=== PATIENT | female | born 1955 | race Asian ===

== ENCOUNTER 2023-10-11 06:22 | Inpatient (IN) | payer OTHER, MEDICAID ==
[2023-10-11] VITALS (46 sets, daily range): BP systolic 110–191; BP diastolic 42–87; PULSE 58–86; RESP 9–22; TEMP 97.3–97.8; O2SAT 94–100
[~2023-10-11] VITALS: Ht 160 cm; Wt 43.0 kg
[~2023-10-11 06:22] MED LIST: ASPI81CH59 PO; ATOR40TA52 PO; CLOP75TA28 PO
[2023-10-11] MEDS: PROTAMINE SULFATE 10 MG/ML 5ML VIAL IV ONE (06:35)
[2023-10-11] MEDS: LIDOCAINE HCL (LOCAL ANESTH.) 0.5 % 50ML MDV IJ ONE (06:35)
[2023-10-11] MEDS: BUPIVACAINE 0.5% P/F INJ 10 ML VIAL ONE (06:35)
[2023-10-11] MEDS ORDERED: PHENYLEPHRINE HCL 10 MG/ML VL IV ONE (06:40)
[2023-10-11] MEDS: LIDOCAINE 2% JELLY 11ml (GLYDO) ONE (06:56)
[2023-10-11] MEDS ORDERED: fentaNYL CITRATE 100 MCG/2 ML VL ONE (07:18)
[2023-10-11] MEDS ORDERED: MEPERIDINE HCL (50 MG/ML) 1 ML VIAL ONE (07:19)
[2023-10-11] MEDS ORDERED: MIDAZOLAM HCL 2MG/2ML 2ml VIAL (1mg/ml) ONE (07:19)
[2023-10-11] MEDS: VANCOMYCIN HCL 1000 MG VL ONE (07:24)
[2023-10-11] MEDS ORDERED: ePHEDrine SULFATE 50 MG/ML AMP IV PRN (08:00)
[2023-10-11] MEDS ORDERED: MORPHINE SULFATE 4 MG/ML SYR/VIAL IV PRN (08:00)
[2023-10-11] MEDS ORDERED: HYDROmorphone HCL 2 MG/ML VL/or syr IV PRN (08:00)
[2023-10-11] MEDS ORDERED: MIDAZOLAM HCL 2MG/2ML 2ml VIAL (1mg/ml) IV PRN (08:00)
[2023-10-11] MEDS ORDERED: ONDANSETRON HCL 4 MG/2 ML VIAL IV PRN (08:00)
[2023-10-11] MEDS ORDERED: ETOMIDATE (2MG/ML) 20ML VIAL IV ONE (08:07)
[2023-10-11] MEDS ORDERED: DexAMETHasone SOD PHOS 10MG/1ML VIAL INJ ONE (08:07)
[2023-10-11] MEDS ORDERED: ONDANSETRON HCL 4 MG/2 ML VIAL ONE (08:08)
[2023-10-11] MEDS: HEPARIN SODIUM (PORCINE) 5000 UNITS/ML 1ML VIAL ONE (08:19)
[2023-10-11] MEDS: LIDOCAINE 1% (LOCAL ANESTH.) PF 5ml SDV ONE (08:20)
[2023-10-11] MEDS: HEPARIN 1,000 UNITS/ml 1ML VIAL ONE (08:30)
[2023-10-11] MEDS ORDERED: MORPHINE SULFATE INJ 2 MG/ml SYRG IV PRN (10:15)
[2023-10-11] MEDS ORDERED: NITROGLYCERIN 0.4 MG SL TAB SL PRN (10:15)
[2023-10-11] MEDS: LABETALOL HCL 5 MG/ML 4ML SYRINGE IV PRN (10:41)
[2023-10-11] MEDS: LISINOPRIL 10 MG TAB PO SCH (11:43)
[2023-10-11] MEDS ORDERED: ACETAMINOPHEN 500 MG TAB PO PRN (11:45)
[2023-10-11] MEDS ORDERED: LISINOPRIL 20 MG TAB PO SCH (11:45)
[2023-10-11] MEDS ORDERED: HYDROcodone-ACET 5/325MG TAB PO PRN (11:45)
[2023-10-11] MEDS: METOPROLOL TARTRATE 1MG/1ML-5ML VIAL IV PRN (12:02)
[2023-10-11] MEDS: hydrALAZINE HCL 20 MG/ML VL IV PRN (12:58)
[2023-10-11] MEDS: ONDANSETRON HCL 4 MG/2 ML VIAL IV PRN (13:57)
[2023-10-11] MEDS: ONDANSETRON HCL 4 MG/2 ML VIAL IV ONE (16:45)
[2023-10-11] MEDS: SODIUM CHLORIDE 0.9% 1,000 ML IV SCH (20:09)
[2023-10-11] MEDS: METOCLOPRAMIDE HCL 5MG/ml INJ 2ml VIAL IV PRN (21:38)
[2023-10-12] VITALS (85 sets, daily range): BP systolic 130–212; BP diastolic 49–91; PULSE 59–124; RESP 13–24; TEMP 97–98.5; O2SAT 91–99
[2023-10-12] MEDS: hydrALAZINE HCL 20 MG/ML VL ONE ×2 (00:08→04:33)
[2023-10-12] MEDS: hydrALAZINE HCL 20 MG/ML VL IV PRN ×3 (00:08→08:05)
[2023-10-12] MEDS: MORPHINE SULFATE INJ 2 MG/ml SYRG IV PRN (03:43)
[2023-10-12 04:06] LABS: Basophils # (auto) 0 10 ^3/uL (0-0.2); Basophils % (auto) 0.4 % (0.0-2.0); Eosinophils # (auto) 0 10 ^3/uL (0-0.8); Hemoglobin 11.7 g/dL (12.2-16.2); Lymphocytes # (auto) 1.1 10 ^3/uL (0.4-5.4); Lymphocytes % (auto) 10.3 % (10.0-50.0); Mean Corpuscular Hemoglobin 29.6 pg (28.0-32.0); Mean Corpuscular Hgb Conc. 33.4 g/dL (32.0-36.0); Mean Corpuscular Volume 88.6 fL (80.0-100.0); Monocytes # (auto) 1.1 10 ^3/uL (0-1.3); Monocytes % (auto) 9.8 % (0.0-12.0); Neutrophils # (auto) 8.9 10 ^3/uL (1.6-8.6); Neutrophils % (auto) 79.5 % (37.0-80.0); Red Blood Cells 3.95 10^6/uL (4.0-5.20); Red Cell Distribution Width 13.1 % (11.8-14.3); White Blood Cell 11.2 10^3/uL (4.4-10.8)
[2023-10-12 04:10] LABS: Chloride 108 mmol/L (98-107); Potassium 3.6 mmol/L (3.5-5.1); Sodium 138 mmol/L (136-145)
[2023-10-12 04:11] LABS: Anion Gap 8 (5-15); Calcium 8.8 mg/dL (8.7-10.4); Carbon Dioxide 22 mmol/L (20-30)
[2023-10-12 04:16] LABS: BUN/Creatinine Ratio 17.5 (10.0-20.0); Blood Urea Nitrogen 10 mg/dL (9-23); Glucose 123 mg/dL (74-106); Magnesium 1.8 mg/dL (1.6-2.6)
[2023-10-12] MEDS: LISINOPRIL 10 MG TAB PO ONE (13:03)
[2023-10-12] MEDS: TAMSULOSIN HYDROCHLORIDE 0.4 MG CAP PO SCH (18:00)
[2023-10-12] MEDS ORDERED: LISINOPRIL 10 MG TAB PO SCH (22:00)
[2023-10-12] MEDS: LISINOPRIL 20 MG TAB PO SCH (22:29)
[2023-10-13] VITALS (40 sets, daily range): BP systolic 128–201; BP diastolic 60–97; PULSE 72–114; RESP 12–22; TEMP 98.3–99.3; O2SAT 92–99
[2023-10-13] MEDS: METOPROLOL TARTRATE 25 MG TAB PO SCH (15:15)
[2023-10-13] MEDS ORDERED: LISI10TA34 PO (15:57)
[2023-10-13] MEDS ORDERED: METO25TA36 PO (15:57)
== END 2023-10-13 18:14 | disposition home or self-care (01) | DRG 39 ==
LOC: SUR 06:22 → TELE 10:16 → ICU WEST 11:05
PROVIDERS: ADMIT Surgery Vascular Surgery; ATTEND Surgery Vascular Surgery
PROC: 03CN0ZZ Extirpation of Matter from Left External Carotid Artery, Open Approach (ICD-10-PCS; 2023-10-11)
PROC: 03CL0ZZ Extirpation of Matter from Left Internal Carotid Artery, Open Approach (ICD-10-PCS; 2023-10-11)
PROC: 03UL0KZ Supplement Left Internal Carotid Artery with Nonautologous Tissue Substitute, Open Approach (ICD-10-PCS; 2023-10-11)
PROC: 03CJ0ZZ Extirpation of Matter from Left Common Carotid Artery, Open Approach (ICD-10-PCS; principal; 2023-10-11 07:24)
DX: I65.22 Occlusion and stenosis of left carotid artery (principal); E78.00 Pure hypercholesterolemia, unspecified; I10 Essential (primary) hypertension; Z82.49 Family history of ischemic heart disease and other diseases of the circulatory system
CPT/HCPCS: 36415; 80048; 83735; 85025; 86850; 86900; 86901; 87081; 97163; G0378; J1100; J2250; J2405; J3490